=== PATIENT | male | born 2000 | race Caucasian/White ===

== ENCOUNTER → 2019-10-02 | Outpatient (CLI) | payer OTHER ==
[2019-10-06 08:07] LABS: QUANTIFERON MITOGEN VALUE >10.00 IU/mL (.); QUANTIFERON NIL VALUE 1.02 IU/mL (.); QUANTIFERON TB1 AG VALUE 3.75 IU/mL (.); QUANTIFERON TB2 AG VALUE 3.58 IU/mL (.); QUANTIFERON-TB GOLD PLUS Positive (Negative)
== END | disposition home or self-care (01) ==
LOC: LAB SHORT 18:16 → LAB 18:16
PROVIDERS: Nurse Practitioner Family
DX: R76.11 Nonspecific reaction to tuberculin skin test without active tuberculosis (principal)
CPT/HCPCS: 86480